=== PATIENT | female | born 1945 | race Caucasian/White ===

== ENCOUNTER 2021-03-03 16:04 | Inpatient (IN) | payer MEDICARE, OTHER ==
[~2021-03-03] VITALS: Ht 152.4 cm; Wt 112.5 kg
[~2021-03-03 16:04] MED LIST: ASA81BEC PO; B-COMPLEX WITH1 EAC2 PO; C-10001000 MG PO; CARVEDILOL12.5 MG PO; ESTRACE1 MG PO; FATTY ACID PO; FLONASE 0.05%50 MCG NASAL; HYDROCHLOROTH12.5 M2 PO; MELOXICAM15 MG PO; MUPIROCIN22 GM TOP; NEURONTIN300 MG PO; NORVASC10 MG PO; OMEGA PO; OMEPRAZOLE 20 M20 M1 PO; PROAIR HFA8.5 GM INH; SYNTHROID88 MC1 PO; XARELTO20 MG PO; ZETIA10 MG PO
[2021-03-03 16:12] VITALS: BP 143/104
[2021-03-03 16:52] LABS: ABSOLUTE BASOPHILS 0.1 thou/uL (0.0-0.2); ABSOLUTE EOSINOPHILS 0.3 thou/uL (0.0-0.7); ABSOLUTE LYMPHOCYTES 2.1 thou/uL (0.8-5.3); ABSOLUTE MONOCYTES 0.8 thou/uL (0.0-1.2); BASOPHILS 0.8 %; EOSINOPHILS 2.4 %; HEMATOCRIT 38.9 % (37.0-47.0); HEMOGLOBIN 12.7 gm/dL (12.0-15.0); LYMPHOCYTES 18.4 %; MCH 29.1 pg (26.0-34.0); MCHC 32.5 g/dL (28.0-37.0); MCV 89.5 fL (80.0-100.0); MONOCYTES 6.8 %; MPV 7.2 fl. (7.2-11.1); NUCLEATED RBCS 0 /100WBC; PLATELET COUNT* 381 thou/uL (150-400); POLYS 71.6 %; RBC 4.35 mil/uL (4.20-5.00); RDW-CV 13.4 % (10.5-14.5); WBC 11.2 thou/uL (4.0-11.0)
[2021-03-03 16:58] LABS: CALCIUM 8.9 mg/dL (8.5-10.1); CREATININE 1.2 mg/dL (0.6-1.3)
[2021-03-03 17:09] LABS: ALBUMIN 3.9 g/dL (3.4-5.0); TOTAL BILIRUBIN 0.4 mg/dL (<0.1-1.0); TOTAL PROTEIN 7.2 g/dL (6.4-8.2)
[2021-03-03 21:50] VITALS: BP 118/78
[2021-03-04 03:03] VITALS: BP 131/97
[2021-03-04 05:48] LABS: PCO2 37.4 mmHg (35.0-45.0); pH 7.455 (7.340-7.450)
[2021-03-04 05:51] LABS: PO2 205.9 mmHg (75.0-100.0)
--- NOTE | 2021-03-04 10:13 | NUR ---
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
[2021-03-04 12:00] VITALS: BP 94/64
--- NOTE | 2021-03-04 15:25 | EKG ---
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 : 1945 Requested By: Chaka Naik Order Number: [id number] MD: Sami Prasad Measurements Intervals [place] Rate: 136 P: SD: QRS: 18 QRSD: 158 T: 107 QT: 322 QTc: 485 Interpretive Statements Atrial fibrillation Nonspecific intraventricular conduction delay Anterior infarct, old Repol abnrm suggests ischemia, lateral leads Baseline wander in lead(s) V1,V2,V3,V6 Compared to ECG 03/03/2021 16:26:22 Intraventricular conduction delay now present Myocardial infarct finding now present Early repolarization now present Possible ischemia now present Electronically Signed On 03-04-2021 15:25:30 CDT by Sami Prasad [email or web address] <ELECTRONICALLY SIGNED> By: Sami Prasad MD, [facility] 03/04/21 1525 163 163 Sami Prasad MD, [facility] /EPI
[2021-03-04 16:00] VITALS: BP 109/86
[2021-03-04 20:47] VITALS: BP 102/66
[2021-03-05] VITALS: BP 108/83
[2021-03-05 04:00] VITALS: BP 118/88
[2021-03-05 04:22] LABS: HEMATOCRIT 34.2 % (37.0-47.0); HEMOGLOBIN 11.2 gm/dL (12.0-15.0); MCH 29.2 pg (26.0-34.0); MCHC 32.8 g/dL (28.0-37.0); MCV 88.9 fL (80.0-100.0); MPV 7.5 fl. (7.2-11.1); RBC 3.85 mil/uL (4.20-5.00); RDW-CV 13.4 % (10.5-14.5); WBC 11.3 thou/uL (4.0-11.0)
[2021-03-05 04:44] LABS: CALCIUM 8.4 mg/dL (8.5-10.1); CREATININE 1.2 mg/dL (0.6-1.3); POTASSIUM 3.2 mmol/L (3.5-5.1)
--- NOTE | 2021-03-05 07:25 | NUR ---
CHANGE OF SHIFT BEDSIDE REPORT GIVEN PATIENT SEEN AT BEDSIDE, IN BED RESTING ASSUMED PATIENT CARE
[2021-03-05 08:00] VITALS: BP 107/76
[2021-03-05 12:00] VITALS: BP 142/84
--- NOTE | 2021-03-05 13:07 | NUR ---
Pt is A&O. Resides at home with . Independent. Pt has a walker and cane that she uses prn. Pt states that she has a wc, but states that it is too heavy for either herself or her to lift. Pt has a cpap, does not use it d/t the recent recall. Hx of HH. No hx of SNF. Goal is home at id, Pt wants HH. CM to contact Pt's for HH choice, Pt can not remember the name of the agency. Cardiology following, currently on amio gtt. Following
[2021-03-05 16:00] VITALS: BP 114/93
--- NOTE | 2021-03-05 17:14 | EKG ---
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 : 1945 Requested By: Sami Prasad Order Number: [id number] Reading MD: Tony Mueller Measurements Intervals [place] Rate: 106 P: MO: QRS: 37 QRSD: 111 T: 161 QT: 355 QTc: 472 Interpretive Statements Atrial fibrillation Anterior infarct, age indeterminate Compared to ECG 03/03/2021 16:32:55 Intraventricular conduction delay no longer present Early repolarization no longer present Possible ischemia no longer present Myocardial infarct finding still present Electronically Signed On 03-05-2021 17:14:26 CDT by Tony Mueller [email or web address] <ELECTRONICALLY SIGNED> By: Tony Mueller MD, [facility] 03/05/21 1714 1645 1645 Tony Mueller MD, [facility] /EPI
[2021-03-05 20:50] VITALS: BP 119/82
[2021-03-06] VITALS (19 sets, daily range): BP systolic 109–161; BP diastolic 55–97
[2021-03-06 04:13] LABS: HEMOGLOBIN 11.6 gm/dL (12.0-15.0); MCH 29.1 pg (26.0-34.0); MCHC 33.1 g/dL (28.0-37.0); MCV 87.9 fL (80.0-100.0); MPV 7.3 fl. (7.2-11.1); RBC 3.98 mil/uL (4.20-5.00); RDW-CV 13.3 % (10.5-14.5); WBC 12.5 thou/uL (4.0-11.0)
[2021-03-06 04:23] LABS: CALCIUM 9.1 mg/dL (8.5-10.1); CREATININE 1.2 mg/dL (0.6-1.3); POTASSIUM 3.9 mmol/L (3.5-5.1)
--- NOTE | 2021-03-06 06:34 | NUR ---
PT A&OX4, VSS ON 3L NC - BIPAP WHILE SLEEPING, IV SALINE LOCKED, AFIB BBB ON TELE MONITOR. PT UP WITH ASSIST TO BSC. NPO SINCE MIDNIGHT. PT SLEEPING WELL, WILL CONTINUE TO MONITOR.
[2021-03-06 07:04] LABS: INR 1.2; PROTIME 13.1 Seconds (9.20-11.50)
--- NOTE | 2021-03-06 13:40 | NUR ---
Pt to have cardioversion today. Anticipate dc to home tomorrow with HH.
[2021-03-07] VITALS (7 sets, daily range): BP systolic 102–160; BP diastolic 57–79
[2021-03-07 03:55] LABS: CALCIUM 9.1 mg/dL (8.5-10.1); CREATININE 1.1 mg/dL (0.6-1.3)
--- NOTE | 2021-03-07 07:34 | NUR ---
Alert and oriented x 4. She is up independently to the bedside commode. She is on O2 at 3L n/c and bipap at night. She had cardioversion yesterday and she converted to sinus rhthym, she was sinus arhthymia and then agustín at 45-50 beats per minute this shift. She states that she feels better than she did. She is coughing up grayish-brown phelgm.
--- NOTE | 2021-03-07 11:16 | EKG ---
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 : 1945 Requested By: Vani Charlton Order Number: [id number] Dg MD: Tony Mueller Measurements Intervals [place] Rate: 57 P: 74 [place]: 252 QRS: 28 QRSD: 103 T: 76 QT: 441 QTc: 430 Interpretive Statements Sinus rhythm Prolonged [place] interval Anteroseptal infarct, age indeterminate Compared to ECG 03/05/2021 16:45:21 First degree AV block now present Atrial fibrillation no longer present Myocardial infarct finding still present Electronically Signed On 03-07-2021 11:15:46 CDT by Tony Mueller [email or web address] <ELECTRONICALLY SIGNED> By: Tony Mueller MD, [facility] 03/07/21 1115 174 [id number] Tony Mueller MD, [facility] /EPI
--- NOTE | 2021-03-07 14:15 | NUR ---
Anticipate dc tomorrow. On 3L, wean. Switch to orals. Cards following. Plan home with HH
--- NOTE | 2021-03-07 17:47 | CARD ---
[address] [address] CARDIAC CATH REPORT Name: REBA MEJIA Room: [address] IN .R.#: [id number] Admission: 03/03/21 Attend Phys: Linda Nicholson MD Discharge: Date of : 49 Report #: [id number] THIS REPORT FOR: cc: Dayne Ibanez MD, Dean L. MD Liston,Sami Campos MD [facility] ~ cc: Dayne Ibanez MD, Ryland Okeefe MD [facility] DATE OF SERVICE: 03/06/2021 PROCEDURE: DC cardioversion. INDICATION: Persistent atrial fibrillation. DESCRIPTION OF PROCEDURE: After informed consent was obtained, the patient was brought to the cardiac holding area. The patient was given intravenous Versed and fentanyl for conscious sedation. She received 100 mg of fentanyl and 5 mg of Versed. Once the patient was adequately sedated, she received a single biphasic shock of 300 joules converting from atrial fibrillation to normal sinus rhythm. The patient tolerated the procedure well without complication. IMPRESSION: 1. Persistent atrial fibrillation. 2. Successful direct current cardioversion to normal sinus rhythm. <ELECTRONICALLY SIGNED> By: Sami Prasad MD, [facility] 03/07/21 1747 0907 [id number] Prasad MD, FACC /nt
--- NOTE | 2021-03-07 17:47 | CON ---
[address] [address] CONSULTATION Name: REBA MEJIA Room: [address] IN M.R.#: [id number] Admission: 03/03/21 Attend Phys: Linda Nicholson MD Discharge: Date of : 49 Report #: [id number] THIS REPORT FOR: cc: Dayne Ibanez MD, Dean L. MD [place],Sami Campos MD FAC ~ cc: Dayne Ibanez MD, Ryland Okeefe MD FAC DATE OF CONSULTATION: 03/03/2021 INDICATION: Atrial fibrillation with rapid ventricular response. HISTORY OF PRESENT ILLNESS: The patient is a 75-year-old white female admitted to the hospital yesterday with pneumonitis and asthma exacerbation. In this setting, she is noted to be in atrial fibrillation with a rapid ventricular response rate. She was seen in the Cardiology office recently with frequent bouts of atrial fibrillation. She was started on flecainide without resolution of arrhythmia. Yesterday, she apparently had a fairly significant episode of asthma with significant shortness of breath. She was taking her Ventolin inhaler and with this had associated palpitations consistent with her atrial fibrillation. She denied any chest pain. Through the Emergency Room, she was started on a diltiazem drip. Her breathing is markedly improved today. She remains in atrial fibrillation, but the rate is better controlled. Recent cardiac evaluation included an echocardiogram that showed an ejection fraction of 50-55% with biatrial dilatation and peak pulmonary artery pressure of 30-35 mmHg. A stress test at that time showed no evidence of infarct or ischemia. PAST MEDICAL HISTORY: 1. Atrial fibrillation. 2. Asthma. 3. Previous renal stent. 4. Peripheral vascular disease with previous lower extremity stenting. 5. Dyslipidemia. 6. Hypertension. 7. Obstructive sleep apnea. SOCIAL HISTORY: The patient is a former smoker, but quit smoking remotely. She does not drink alcohol. FAMILY HISTORY: Noncontributory. REVIEW OF SYSTEMS: Positive for shortness of breath and dyspnea. Otherwise[place] [address] CONSULTATION Name: REBA MEJIA Room: [address]#: [id number] Admission: 03/03/21 Attend Phys: Linda Nicholson MD Discharge: Date of : 49 Report #: [id number] PHYSICAL EXAMINATION: VITAL SIGNS: Blood pressure 120/84, pulse presently 115 and irregular. GENERAL: This is a pleasant lady in no distress. Mood and affect appropriate. HEENT: Normocephalic, atraumatic. Extraocular muscles intact. Mucous membranes are moist. NECK: Shows no jugular venous distention. There are no carotid bruits. CHEST: Reveals relatively clear lung castillo with slight expiratory wheezes. CARDIAC: Reveals an irregularly irregular rhythm without gallop or murmur. ABDOMEN: Reveals normal bowel sounds. Abdomen is soft and nontender. EXTREMITIES: Shows trace ankle edema. SKIN: Dry. DIAGNOSTIC STUDIES: A 12-lead EKG shows atrial fibrillation with a rapid ventricular response rate. Intraventricular conduction delay noted. Troponins are unremarkable. Chest x-ray shows some patchy infiltrate. IMPRESSION AND RECOMMENDATIONS: 1. Atrial fibrillation. We will start amiodarone drip after bolus in an effort to cardiovert. Continue Xarelto 20 mg daily for anticoagulation. 2. Pneumonitis per hospitalist. 3. Hypertension, adequately controlled at present. 4. Dyslipidemia. She is statin intolerant. Continue Zetia. <ELECTRONICALLY SIGNED> By: Sami Prasad MD, [facility]ACC 03/07/21 1747 1046 [id number] Prasad MD, FACC /nt
--- NOTE | 2021-03-07 18:48 | NUR ---
PATIENT HAS REMAINED A&OX4, PLEASANT AND COOPERATIVE WITH CARES THIS SHIFT. PATIENT WEARING O2@3L NASAL CANNULA. PATIENT UP AD REGGIE TO BSC AND REPORTS HAVING BM TODAY. CARVEDILOL HELD THIS A.M. D/T BEING BRADYCARDIC. CALL LIGHT AND FREQUENTLY USED ITEMS WITHIN REACH.
[2021-03-08 04:00] VITALS: BP 154/81
--- NOTE | 2021-03-08 07:30 | NUR ---
Alert and oriented x 4. She has been up to the bedside commode independently. vitals are stable, O2 sat stable. She is on 3L n/c and bipap at night. She just called and said she couldn't breathe. The bipap was not alarming and her pulse ox was 99%. I did take her off the bipap and start her on 2L n/c. She said she felt that the mask was not on properly. But she didn't call out about it. She did sleep well.
--- NOTE | 2021-03-08 13:50 | NUR ---
Nutrition: Pt admitted with afib with RVR. H/o HTN, OBE, SHONA. Seen for high BMI. Pt stated she usually weighs 165#. Wt in [facility] was 183# at admit, and today is recorded as 248# - error. I reweighed pt in bed and got 153#. Pt did say her wt fluctuates some d/t fluid retention. She tries to follow a low Na diet at home and understands the importance of it. She is on 2gm Na diet, eating well. We discussed low Na diet and grocery shopping. Pt appears at mild nutrition risk at this time.
--- NOTE | 2021-03-08 15:04 | NUR ---
Pulm consulted, Pt's home cpap was recalled, but no alternate was provided, Pulm to see for recommendations. Pt went into Afib today, cardiology following, Goal is home at dc with HH
[2021-03-08 16:00] VITALS: BP 107/73
--- NOTE | 2021-03-08 16:23 | EKG ---
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: : 1945 Requested By: Yuridia Freire Order Number: [id number] Reading MD: Tony Mueller Measurements Intervals [place] Rate: 129 P: MA: QRS: -19 QRSD: 119 T: 128 QT: 334 QTc: 490 Interpretive Statements Atrial fibrillation flutter with a mildly tachycardic ventricular response Nonspecific intraventricular conduction delay of the left type Repol abnrm suggests ischemia, lateral leads Compared to ECG 03/06/2021 17:40:08 Supraventricular arrhythmia with a tachycardic response is noted Interventricular conduction delay is more pronounced Electronically Signed On 03-08-2021 16:23:06 CDT by Tony Mueller [email or web address] <ELECTRONICALLY SIGNED> By: Tony Mueller MD, [facility] 03/08/21 1623 1017 1017 Tony Mueller MD, [facility] /EPI
[2021-03-08 20:00] VITALS: BP 143/84
--- NOTE | 2021-03-08 20:27 | NUR ---
Pt A&OX4, afebrile, no complaints of pain. Pt up with SBA. Lungs are diminished throughout, NC. Heart was in NSR with 1AVB, pt switched into Afib around 1100 this AM. 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 Pt given medical management for s/s of Afib. Pt has slight generalized edema, 2/2 pulses. Pt's abd is soft, large, round. Normoactive BSX4, nondisteded, nontender. Pt continent and voids in tbe bedside commode. No skin issues. PIV flushed with 10mls NS. Pt bed in low locked position. Call light within reach. Pulmonary consulted for BiPAP concerns and Afib revert. Will continue to monitor.
[2021-03-09] VITALS (9 sets, daily range): BP systolic 117–155; BP diastolic 60–90
[2021-03-09 04:11] LABS: HEMATOCRIT 39.9 % (37.0-47.0); MCH 28.7 pg (26.0-34.0); MCHC 32.6 g/dL (28.0-37.0); MCV 88.3 fL (80.0-100.0); MPV 7.3 fl. (7.2-11.1); RBC 4.52 mil/uL (4.20-5.00); WBC 11.8 thou/uL (4.0-11.0)
[2021-03-09 04:19] LABS: CALCIUM 9.1 mg/dL (8.5-10.1); POTASSIUM 4.1 mmol/L (3.5-5.1)
--- NOTE | 2021-03-09 06:49 | NUR ---
Alert and oriented x 4. She started out the shift with tachycardia and BBB per heart monitor. She did have her bipap settings changed per Dr Foster orders. She has mostly been afib on the monitor bp and sats are doing well. HR around 90-100. She had prn ativan and has slept well.
--- NOTE | 2021-03-09 09:47 | EKG ---
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1945 Requested By: Vani Charlton Order Number: [id number] Reading MD: Tony Mueller Measurements Intervals [place] Rate: 59 P: 57 AR: 249 QRS: -14 QRSD: 98 T: 110 QT: 446 QTc: 442 Interpretive Statements Sinus rhythm Prolonged AR interval Consider left atrial enlargement Anterior infarct, age indeterminate Compared to ECG 03/08/2021 10:17:44 First degree AV block now present Myocardial infarct finding now present Atrial fibrillation no longer present Intraventricular conduction delay no longer present Early repolarization no longer present Possible ischemia no longer present Electronically Signed On 03-09-2021 9:47:09 CDT by Tony Mueller [email or web address] <ELECTRONICALLY SIGNED> By: Tony Mueller MD, [facility] 03/09/2147 5 5 Tony Mueller MD, [facility] /EPI
--- NOTE | 2021-03-09 14:38 | NUR ---
Anticipate dc to home today. CM faxed initial referral to [facility], DC orders will need to be faxed to [phone]. Pt had cardioversion today. Pulm following.
[2021-03-09] MEDS ORDERED: PACERONE 200 M200 M1 PO (15:37)
--- NOTE | 2021-03-09 22:20 | CON ---
[address] [address] CONSULTATION Name: REBA MEJIA Room: [address] IN M.R.#: [id number] Admission: 03/03/21 Attend Phys: Linda Nicholson MD Discharge: Date of : 49 Report #: [id number] THIS REPORT FOR: cc: Dayne Ibanez MD, Dean L. MD Pervez, Adeel MD ~ DATE OF CONSULTATION: 03/08/2021 REQUESTING PHYSICIAN: Yuridia Freire MD INDICATION FOR CONSULTATION: Evaluation for CPAP and BiPAP. HISTORY OF PRESENT ILLNESS: A 75-year-old female with past medical history is as mentioned below. This includes a history of atrial fibrillation. The patient appears to have been recently diagnosed. She has a remote history of smoking, discontinued in 1988. Does have asthma. Does have obstructive sleep apnea as well. Her CPAP is amongst the lot from [employer] which was recalled. The patient says that since the recall, she has not been using the CPAP. She gave conflicting statements regarding whether she was using the CPAP regularly before or not. It is not fully clear to me as to whether she was using it regularly previously. She does have disturbed sleep at night as well as sleepiness during the day, which is longstanding. She usually sleeps on her back. She does have shortness of breath. Recently shortness of breath has been worse when she has also had atrial fibrillation. She has an occasional cough. There is not much sputum. She does not have upper respiratory complaints. She does not have swelling of lower extremities or calf pain. Since admission, she has had cardioversion; however, it appeared that she has reverted back to atrial fibrillation rhythm. Currently, she is on 3 liters nasal cannula, but she is saturating around 99%. REVIEW OF SYSTEMS: The patient's review of systems for 12 points is negative except as mentioned above. PAST MEDICAL HISTORY: Obstructive sleep apnea, on a CPAP at home, which is subject to the [employer] recall; bronchial asthma; atrial fibrillation. There is recent echocardiogram, which shows normal left ventricular ejection fraction without elevation in right heart pressures. Also, a renal stent, peripheral vascular disease, hyperlipidemia, and hypertension. SOCIAL HISTORY: She was a smoker. She has a history of smoking in the past, discontinued in 1988. Since then, nonsmoker. No known history of heavy alcohol use or illegal drug use. CURRENT MEDICATIONS: [place] [address] CONSULTATION Name: REBA MEJIA Room: [address] IN [facility]#: [id number] Admission: 03/03/21 Attend Phys: Linda Nicholson MD Discharge: Date of : 49 Report #: [id number] HOME MEDICATIONS: List in [employer] reviewed. FAMILY HISTORY: No pertinent family history. ALLERGIES: PENICILLIN AND SULFONAMIDE ANTIBIOTICS; however, she tolerates cephalosporins without problems. PHYSICAL EXAMINATION: GENERAL: She is alert, awake and oriented. She is tachycardic. VITAL SIGNS: Heart rate is 112, blood pressure 127/82. She is saturating 99%. She is afebrile with a temperature of 36.3. Body mass index is 49. HEENT: Head is normocephalic and atraumatic. Pupils are equal and reactive. There is no throat erythema. NECK: Does not show raised JVP, asymmetry, mass or lymph nodes. CHEST: Symmetrical expansion on inspection and palpation. On auscultation, chest is clear. HEART: Regular, no murmur. ABDOMEN: Soft and nontender. EXTREMITIES: Lower extremities show no edema and no calf tenderness. SKIN: Dry and intact. NEUROLOGIC: Moves all extremities bilaterally equally and spontaneously with no focal deficit identified. LABORATORY DATA: The patient had 2 chest x-rays. The first chest x-ray from 03/03 shows a significant increase in pulmonary vascular congestion. This has resolved on the second chest x-ray done yesterday. ASSESSMENT AND PLAN: 1. Obstructive sleep apnea/hypersomnia/sleep disturbances. For now, we will go ahead and switch her BiPAP over to AVAPS mode. She has a CPAP, which is subject to [employer] recall. In order to protect themselves, [employer] has recommended that none of the recall machines should be used; however, this is not the opinion of most professional organizations. While the patient's CPAP should be replaced as soon as possible, if this is the only CPAP she has available and the potential benefit of using the CPAP to outweigh risks, I will recommend that she uses the same. Recommend assessing oxygen needs prior to discharge. I will be happy to see the patient in my office and then assess further. I also recommend that we proceed with an in-lab sleep study and I will arrange the same for her as well. Weight loss is also strongly recommended. The patient is currently sleeping supine. If she is able to sleep on her sides, then this may be preferable. 2. Bronchial asthma/history of smoking. She does not appear to be actively [address] [address] CONSULTATION Name: REBA MEJIA Room: [address] IN [facility]#: [id number] Admission: 03/03/21 Attend Phys: Linda Nicholson MD Discharge: Date of : 49 Report #: [id number] bronchospastic at this time. She is on prednisone and p.r.n. DuCatalinabs. Recommend tapering of prednisone. I will also arrange a pulmonary function test for her as an outpatient. 3. Atrial fibrillation. Cardiology service is managing. 4. Congestive heart failure. Her first chest x-ray from the is consistent with congestive heart failure and there is significant increase in pulmonary vascular congestion. This has subsided on the second chest x-ray, likely the patient had heart failure secondary to atrial fibrillation, which is already better. 5. Pulmonary infiltrates. She is adequately treated with azithromycin already. Also, she is on amiodarone, so we would like to limit use of azithromycin and therefore, I would discontinue. She is on ceftriaxone. Recommend discontinuing after tomorrow's dose. 6. Clostridium difficile prophylaxis, Lactinex. I will see her as needed while she is here. Please call if questions. I will plan to see her in the office as well as arrange an in-lab sleep study as well as pulmonary function test after her discharge. Please call if questions. Thanks for this consultation. <ELECTRONICALLY SIGNED> By: Chato Foster MD 03/09/21 2220 1706 [id number] Foster MD /nt
[2021-03-10] VITALS (7 sets, daily range): BP systolic 104–147; BP diastolic 58–75
--- NOTE | 2021-03-10 06:43 | NUR ---
ASSUMED PT CARE AT APPROX. 1930. PT IS A/OX4. PT IS TRACING SR-SB ON ELECTRIC LINEMAN. VSS. MEDICATIONS ADMINISTERED PRESCRIBED. HOURLY ROUNDS COMPLETE CHARTED. NO ACUTE CHANGES THIS SHIFT. FALL PRECAUTIONS IN PLACE FOR SAFETY. WILL CONT. TO MONITOR.
[2021-03-10] MEDS ORDERED: PREDNISONE 10 M10 MG PO (09:09)
[2021-03-10] MEDS ORDERED: LASIX 40 MG TAB40 M2 PO (09:58)
[2021-03-10] MEDS ORDERED: KLOR-CON M2020 MEQ PO (09:58)
[2021-03-10] MEDS ORDERED: ATIVAN0.5 M1 PO (10:04)
[2021-03-10] MEDS ORDERED: SYMBICORT160 MCG/4. INH (14:42)
[2021-03-10] MEDS ORDERED: LEVALBUTER0.63 MG/3 INH (14:42)
--- NOTE | 2021-03-10 17:47 | NUR ---
PT WAS READY FOR DC AT 1342 BUT IT WAS DISCOVERED THAT SHE HAD NO NEBULIZER MACHINE AT HOME SO SHE HAD TO WAIT A GUEST ON ARRANGEMENTS FOR NEBULIZER TO BE DILIVERED WELL NEW RX FOR XOPENEX AND ADDITIONAL INHALER INSTEAD OF ALBUTEROL.
[2021-03-10] MEDS ORDERED: NEBULIZER MISCELL (17:51)
[2021-03-10] MEDS ORDERED: XOPENEX HFA15 GM INH (19:04)
== END 2021-03-10 17:00 | disposition home health service (06) | DRG 291 ==
LOC: M.ERS 16:04 → M.2W 17:58 → M.TBA-ER 17:58 → M.2W 03-04 03:10
PROVIDERS: Emergency Medicine Emergency Medical Services; Family Medicine; Registered Nurse; ADMIT Internal Medicine; ATTEND Internal Medicine
PROC: 5A09357 Assistance with Respiratory Ventilation, Less than 24 Consecutive Hours, Continuous Positive Airway Pressure (ICD-10-PCS; principal; 2021-03-04)
PROC: 5A0935A Assistance with Respiratory Ventilation, Less than 24 Consecutive Hours, High Flow/Velocity Cannula (ICD-10-PCS; principal; 2021-03-04)
PROC: 5A0935A Assistance with Respiratory Ventilation, Less than 24 Consecutive Hours, High Flow/Velocity Cannula (ICD-10-PCS; 2021-03-05)
PROC: 5A2204Z Restoration of Cardiac Rhythm, Single (ICD-10-PCS; 2021-03-06)
PROC: 5A0935A Assistance with Respiratory Ventilation, Less than 24 Consecutive Hours, High Flow/Velocity Cannula (ICD-10-PCS; 2021-03-06)
PROC: 5A0935A Assistance with Respiratory Ventilation, Less than 24 Consecutive Hours, High Flow/Velocity Cannula (ICD-10-PCS; 2021-03-07)
PROC: 5A0935A Assistance with Respiratory Ventilation, Less than 24 Consecutive Hours, High Flow/Velocity Cannula (ICD-10-PCS; 2021-03-08)
PROC: 5A0935A Assistance with Respiratory Ventilation, Less than 24 Consecutive Hours, High Flow/Velocity Cannula (ICD-10-PCS; 2021-03-09)
DX: I11.0 Hypertensive heart disease with heart failure (principal); J15.9 Unspecified bacterial pneumonia; I48.19 Other persistent atrial fibrillation; E87.1 Hypo-osmolality and hyponatremia; J96.10 Chronic respiratory failure, unspecified whether with hypoxia or hypercapnia; R65.10 Systemic inflammatory response syndrome (SIRS) of non-infectious origin without acute organ dysfunction; I50.33 Acute on chronic diastolic (congestive) heart failure; J45.909 Unspecified asthma, uncomplicated; I73.9 Peripheral vascular disease, unspecified; E78.5 Hyperlipidemia, unspecified; G47.33 Obstructive sleep apnea (adult) (pediatric); E87.6 Hypokalemia; E03.9 Hypothyroidism, unspecified; Z20.822 Contact with and (suspected) exposure to COVID-19; Z79.82 Long term (current) use of aspirin; Z87.891 Personal history of nicotine dependence; Z79.899 Other long term (current) drug therapy; Z79.01 Long term (current) use of anticoagulants; Z88.0 Allergy status to penicillin; Z88.2 Allergy status to sulfonamides

== ENCOUNTER 2021-03-11 03:16 | Inpatient (IN) | payer MEDICARE, OTHER ==
[~2021-03-11] VITALS: Ht 152.4 cm; Wt 71.2 kg
[~2021-03-11 03:16] MED LIST changes: +ATIVAN0.5 M1 PO; +KLOR-CON M2020 MEQ PO; +LASIX 40 MG TAB40 M2 PO; +LEVALBUTER0.63 MG/3 INH; +NEBULIZER MISCELL; +PACERONE 200 M200 M1 PO; +PREDNISONE 10 M10 MG PO; +SYMBICORT160 MCG/4. INH; +XOPENEX HFA15 GM INH
[2021-03-11 03:17] VITALS: BP 179/76
[2021-03-11 03:52] LABS: ABSOLUTE BASOPHILS 0.1 thou/uL (0.0-0.2); ABSOLUTE LYMPHOCYTES 1.6 thou/uL (0.8-5.3); ABSOLUTE MONOCYTES 0.7 thou/uL (0.0-1.2); ABSOLUTE NEUTROPHILS 11.9 thou/uL (1.6-8.1); BASOPHILS 0.6 %; EOSINOPHILS 0.1 %; HEMATOCRIT 35.3 % (37.0-47.0); HEMOGLOBIN 11.7 gm/dL (12.0-15.0); LYMPHOCYTES 11.4 %; MCH 28.9 pg (26.0-34.0); MCHC 33.1 g/dL (28.0-37.0); MCV 87.3 fL (80.0-100.0); MONOCYTES 5.1 %; MPV 7.2 fl. (7.2-11.1); NUCLEATED RBCS 0 /100WBC; PLATELET COUNT* 388 thou/uL (150-400); POLYS 82.8 %; RBC 4.05 mil/uL (4.20-5.00); RDW-CV 12.9 % (10.5-14.5); WBC 14.4 thou/uL (4.0-11.0)
[2021-03-11 04:04] LABS: CALCIUM 9.1 mg/dL (8.5-10.1); CREATININE 1.2 mg/dL (0.6-1.3); POTASSIUM 3.6 mmol/L (3.5-5.1)
[2021-03-11 04:05] LABS: PROTIME 10.6 Seconds (9.20-11.50)
[2021-03-11 04:14] LABS: ALBUMIN 3.6 g/dL (3.4-5.0); MAGNESIUM 1.9 mg/dL (1.8-2.4); TOTAL BILIRUBIN 0.3 mg/dL (<0.1-1.0); TOTAL PROTEIN 6.7 g/dL (6.4-8.2)
[2021-03-11 06:21] LABS: URINE BILIRUBIN NEGATIVE (Negative); URINE BLOOD NEGATIVE (Negative); URINE CLARITY CLEAR; URINE COLOR YELLOW; URINE GLUCOSE-RANDOM NEGATIVE (Negative); URINE KETONES NEGATIVE (Negative); URINE LEUKOCYTES-REFLEX NEGATIVE (Negative); URINE NITRITE-REFLEX NEGATIVE (Negative); URINE PROTEIN NEGATIVE (Negative); URINE SPECIFIC GRAVITY 1.015 (1.005-1.030); URINE UROBILINOGEN 0.2 E.U./dl (0.2-1.0)
--- NOTE | 2021-03-11 09:09 | EKG ---
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 : 1945 Requested By: Kia Dunn Order Number: [id number] MD: Ryland Okeefe Measurements Intervals [place] Rate: 66 P: 61 LA: 234 QRS: -8 QRSD: 107 T: 85 QT: 455 QTc: 477 Interpretive Statements Sinus rhythm Prolonged LA interval septal q waves Compared to ECG 03/09/2021 09:16:56 rate has increased Electronically Signed On 03-11-2021 9:09:09 CDT by Ryland Okeefe [email or web address] <ELECTRONICALLY SIGNED> By: Ryland Okeefe MD, [facility] 03/11/2109 5 5 Ryland Okeefe MD, [facility] /EPI
[2021-03-11 10:23] VITALS: BP 119/68
[2021-03-11 14:35] VITALS: BP 101/62
--- NOTE | 2021-03-11 14:42 | NUR ---
DORCAS CALLED ER TO FOLLOW UP ON NEBULIZER PRESCRIPTION, APRIA WILL FOLLOW UP TOMORROW FOR PRESCRIPTION.
[2021-03-11 18:31] VITALS: BP 137/62
[2021-03-11 22:20] VITALS: BP 109/67
[2021-03-12] VITALS (8 sets, daily range): BP systolic 116–137; BP diastolic 55–71
--- NOTE | 2021-03-12 05:51 | NUR ---
PT ADMITTED TO ROOM 206 AT 0500 FOR AFIB/RVR.
[2021-03-12] MEDS ORDERED: DILTIAZEM 24HR180 M1 PO (09:44)
[2021-03-12] MEDS ORDERED: PACERONE 200 M200 M1 PO (09:44)
--- NOTE | 2021-03-12 15:25 | NUR ---
Pt is A&O. Known to this CM from previous hospital stay. Pt was discharged on Friday, readmitted on Friday. Plan was home with [facility]. [place]. Pt resides at home with her . Independent. Pt has a walker, wc and cane at home. Pt's cpap recalled, plan to f/u with pulm post dc. Anticipate dc tomorrow per cardiology.
--- NOTE | 2021-03-12 18:28 | NUR ---
PT A&Ox4. VITALS STABLE. IV PATENT. UP WITH 1. GOT A LITTLE LIGHT HEADED WHEN STANDING TO GO TO RESTROOM THIS AFTERNOON, PT STATES THAT THIS HAPPENS FREQUENTLY AND HAS BEEN HAPPENING FOR SEVERAL YEARS. FALL PRECAUTIONS IN PLACE. WILL CONTINUE TO MONITOR.
[2021-03-13] VITALS (8 sets, daily range): BP systolic 88–154; BP diastolic 46–77
--- NOTE | 2021-03-13 08:44 | NUR ---
Pt discharging to home today, faxed HH orders [facility]
--- NOTE | 2021-03-13 15:02 | EKG ---
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1945 Requested By: Ryland Okeefe Order Number: [id number] Reading MD: Ryland Okeefe Measurements Intervals [place] Rate: 66 P: [place]: QRS: -10 QRSD: 101 T: 153 QT: 463 QTc: 486 Interpretive Statements Atrial fibrillation septal q waves noted Nonspecific repol abnormality, inferior leads Compared to ECG 03/11/2021 03:16:23 Sinus rhythm no longer present Electronically Signed On 03-13-2021 15:01:50 CDT by Ryland Okeefe [email or web address] <ELECTRONICALLY SIGNED> By: Ryland Okeefe MD, [facility] 03/13/21 1501 1427 1427 Ryland Okeefe MD, [facility] /EPI
--- NOTE | 2021-03-13 18:12 | NUR ---
PATIENT A&OX4, PLEASANT AND COOPERATIVE WITH CARES. PATIENT POSITIVE FOR ORTHOSTATIC HYPOTENSION. 500ML BOLUS GIVEN W/O PER ORDERS FROM DR. GAITAN. PATIENT AND MORE COMFORTABLE WITH HER STAYING TONIGHT D/T BLOOD PRESSURE ISSUES. DR. GAITAN AWARE. MEDICATIONS ADMINISTERED ORDERED. CALL LIGHT AND FREQUENTLY USED ITEMS WITHIN REACH.
--- NOTE | 2021-03-14 05:20 | NUR ---
PT SLEPT MOST OF SHIFT. ASSESSMENT DOCUMENTED. MEDS GIVEN PER E-MAR. IV PATENT. NO REPORTS OF PAIN. FALL PRECAUTIONS IN PLACE. PT USING BED DANIELS THIS SHIFT. PT ABLE TO MAKE NEEDS KNOWN. WILL CONTINUE WITH PLAN OF CARE.
[2021-03-14 08:17] VITALS: BP 127/66
[2021-03-14 08:18] VITALS: BP 139/64
[2021-03-14 08:19] VITALS: BP 134/77
[2021-03-14] MEDS ORDERED: LEVALBUTER0.63 MG/3 INH (09:46)
[2021-03-14 12:41] VITALS: BP 121/46
[2021-03-14 12:56] VITALS: BP 111/49
--- NOTE | 2021-03-14 13:58 | NUR ---
dc held yesterday, dc today. Order received for nebulizer, CM faxed to [facility], will be delivered to Pt's home.
--- NOTE | 2021-03-14 16:36 | NUR ---
PATIENT GIVEN DISCHARGE INSTRUCTIONS AND MEDICATIONS REVIEWED. NEW PRESCRIPTIONS CALLED INTO [facility] [address] PER PATIENT REQUEST. IV REMOVED. PATIENT DENIED PAIN/QUESTIONS/CONCERNS PRIOR TO D/C. PATIENT LEFT UNIT WITH PERSONAL BELONGINGS VIA W/C, ACCOMPANIED BY NURSING STAFF AND AT APPROX. 1620.
[2021-03-14 16:39] VITALS: BP 121/46
== END 2021-03-14 16:20 | disposition home health service (06) | DRG 178 ==
LOC: M.ERS 03:16 → M.TBA-ER 06:50 → M.2W 03-12 05:18
PROVIDERS: Emergency Medicine; ADMIT Internal Medicine; ATTEND Internal Medicine
DX: J15.6 Pneumonia due to other Gram-negative bacteria (principal); R65.10 Systemic inflammatory response syndrome (SIRS) of non-infectious origin without acute organ dysfunction; I50.32 Chronic diastolic (congestive) heart failure; E87.1 Hypo-osmolality and hyponatremia; I48.91 Unspecified atrial fibrillation; Z20.822 Contact with and (suspected) exposure to COVID-19; J45.909 Unspecified asthma, uncomplicated; I45.4 Nonspecific intraventricular block; E03.9 Hypothyroidism, unspecified; E86.0 Dehydration; I11.0 Hypertensive heart disease with heart failure; G47.33 Obstructive sleep apnea (adult) (pediatric); I73.9 Peripheral vascular disease, unspecified; Z88.0 Allergy status to penicillin; Z88.2 Allergy status to sulfonamides

== ENCOUNTER → 2021-05-24 | Outpatient (CLI) | payer MEDICARE, OTHER ==
[~2021-05-24] MED LIST changes: +DILTIAZEM 24HR180 M1 PO
== END ==
LOC: M.RAD 10:52
PROVIDERS: ATTEND Internal Medicine Critical Care Medicine
DX: R91.8 Other nonspecific abnormal finding of lung field (principal)

== ENCOUNTER → 2021-05-26 | Outpatient (CLI) | payer MEDICARE, OTHER ==
--- NOTE | 2021-06-14 11:31 | SLEEP ---
[address] [address] SLEEP STUDY REPORT Name: REBA MEJIA Room: [facility]#: [id number] Admission: 05/26/21 Attend Phys: Chato Foster MD Discharge: Date of : 49 Report #: [id number] THIS REPORT FOR: cc: Dayne Ibanez MD, Dean L. MD Pervez, Adeel MD ~ DATE OF STUDY: 05/26/2021 SLEEP STUDY INDICATION FOR SLEEP STUDY: Excessive daytime sleepiness and a previous history of obstructive sleep apnea and BiPAP use. INTERPRETATION: Total duration of the study is 469 minutes, out of which she was asleep for 145 minutes with an overall sleep efficiency significantly decreased to 31%. Sleep onset was significantly delayed occurring more than 3 hours after lying down in bed. N1 sleep duration was 8%, N2 duration was 63%. There is no N3 sleep recorded. REM sleep duration is 29%. There are multiple sleep-related respiratory events recorded once the patient is asleep. These include 36 hypopneas in addition to 1 mixed apnea, 8 obstructive apneas and 2 respiratory effort-related arousals. Overall, apnea-hypopnea index is 18.7. Events are more common in REM sleep. The REM apnea-hypopnea index is 50. Body position data indicates that for most of the duration of the sleep study, the patient was lying supine. Only 2.5 minutes of sleep on the right side was recorded. Mean heart rate was 73. Periodic limb movement index is normal at 2.1. Arousal index is normal at 6.6. O2 saturation is mostly above 90%; however, there are multiple desaturations recorded. O2 saturation does drop below 90% for 6 minutes during the sleep study. The patient is reported to have had several coughing spells during the sleep study. IMPRESSION: 1. Obstructive sleep apnea with an apnea-hypopnea index of 18.7 with mild nocturnal hypoxemia as described above. 2. There is a marked reduction in sleep efficiency to 30.8% noted. It took the patient more than 3 hours to fall asleep initially. Subsequently had sustained sleep. 3. The patient is lying supine for most of the sleep study. RECOMMENDATIONS: 1. Recommend proceeding to a repeat sleep study for positive airway pressure titration. 2. Would ask the patient to stay awake the whole day after waking up early in the morning and avoid use of caffeine the day before the next sleep study so that an adequate total sleep time for a positive airway pressure [place] [address] SLEEP STUDY REPORT Name: REBA MEJIA Room: [facility]#: [id number] Admission: 05/26/21 Attend Phys: Chato Foster MD Discharge: Date of : 49 Report #: [id number] 3. She will benefit from weight loss. 4. Recommend avoiding driving and other activities requiring vigilance if drowsy. This entire sleep study was reviewed by board certified sleep physician. <ELECTRONICALLY SIGNED> By: Chato Foster MD 06/14/21 1131 2106 [id number] Foster MD /nt
== END ==
LOC: M.SLEEPLAB 19:53
PROVIDERS: ATTEND Internal Medicine Critical Care Medicine
DX: G47.33 Obstructive sleep apnea (adult) (pediatric) (principal); G47.19 Other hypersomnia; R09.02 Hypoxemia

== ENCOUNTER 2021-06-10 13:27 | Emergency (ER) | payer MEDICARE, OTHER ==
[~2021-06-10] VITALS: Ht 157.5 cm; Wt 85.5 kg
[2021-06-10 13:59] LABS: ABSOLUTE EOSINOPHILS 0.2 thou/uL (0.0-0.7); ABSOLUTE MONOCYTES 0.3 thou/uL (0.0-1.2); BASOPHILS 0.5 %; EOSINOPHILS 2.7 %; HEMATOCRIT 21.2 % (37.0-47.0); LYMPHOCYTES 26.4 %; MCH 24.9 pg (26.0-34.0); MCHC 30.1 g/dL (28.0-37.0); MCV 82.7 fL (80.0-100.0); MPV 6.5 fl. (7.2-11.1); NUCLEATED RBCS 0 /100WBC; PLATELET COUNT* 517 thou/uL (150-400); POLYS 66.4 %; RBC 2.56 mil/uL (4.20-5.00); RDW-CV 27.2 % (10.5-14.5); WBC 7.5 thou/uL (4.0-11.0)
[2021-06-10 14:07] LABS: HEMOGLOBIN 6.4 gm/dL (12.0-15.0)
[2021-06-10 14:09] LABS: CALCIUM 8.8 mg/dL (8.5-10.1); CREATININE 1.1 mg/dL (0.6-1.3)
[2021-06-10 14:28] LABS: ANISOCYTOSIS 2+; PLATELET ESTIMATE INCREASED
[2021-06-10 14:29] LABS: HYPOCHROMASIA Occasional; POLYCHROMASIA Occasional
[2021-06-10 14:30] LABS: OVALOCYTES Occasional
[2021-06-10 14:42] LABS: ALBUMIN 3.2 g/dL (3.4-5.0); CK-MB MASS 1.6 ng/mL (<0.5-3.6); TOTAL BILIRUBIN 0.2 mg/dL (<0.1-1.0); TOTAL PROTEIN 6.5 g/dL (6.4-8.2)
[2021-06-10 14:45] LABS: BE -13.7 mmol/L (-2 to +3); PCO2 27.4 mmHg (35.0-45.0)
[2021-06-10 14:52] LABS: PO2 298.4 mmHg (75.0-100.0); pH 7.263 (7.340-7.450)
[2021-06-10 16:43] VITALS: BP 103/64
--- NOTE | 2021-06-11 15:59 | EKG ---
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 : 1945 Requested By: Andrzej Timmons Order Number: [id number] MD: Tony Mueller Measurements Intervals [place] Rate: 58 P: [place]: QRS: 34 QRSD: 127 T: 139 QT: 418 QTc: 411 Interpretive Statements Atrial fibrillation Incomplete left bundle branch block Compared to ECG 03/13/2021 14:27:03 IVCD left is more pronounced Early repolarization no longer present Electronically Signed On 06-11-2021 15:59:19 PATTERN SCRATCHER by Tony Mueller [email or web address] <ELECTRONICALLY SIGNED> By: Tony Mueller MD, [facility] 06/11/21 1559 1428 1428 Tony Mueller MD, [facility] /EPI
== END 2021-06-10 16:45 | disposition short-term general hospital (02) ==
LOC: M.ERS 13:27
PROVIDERS: Family Medicine
DX: D64.9 Anemia, unspecified (principal); Z20.822 Contact with and (suspected) exposure to COVID-19; R11.2 Nausea with vomiting, unspecified; J45.909 Unspecified asthma, uncomplicated; E03.9 Hypothyroidism, unspecified; I11.0 Hypertensive heart disease with heart failure; I50.9 Heart failure, unspecified; Z86.74 Personal history of sudden cardiac arrest; Z90.710 Acquired absence of both cervix and uterus; Z90.49 Acquired absence of other specified parts of digestive tract; Z79.899 Other long term (current) drug therapy; Z88.0 Allergy status to penicillin; Z88.2 Allergy status to sulfonamides